=== PATIENT | male | born 1945 | race Caucasian/White ===

== ENCOUNTER 2018-01-01 17:46 | Emergency (ER) | payer MEDICARE, BC ==
[~2018-01-01] VITALS: Ht 177.8 cm; Wt 81.4 kg
[2018-01-01] MEDS ORDERED: normal saline 1000ML IV soln IV ONE (18:15)
[2018-01-01 18:46] LABS: BASOPHILS % (AUTO) 0.2 % (0-1); EOSINOPHILS % (AUTO) 0.1 % (0-6); HEMATOCRIT 43.3 % (42.0-52.0); HEMOGLOBIN 14.6 g/dl (14.0-17.9); LYMPHOCYTES % (AUTO) 4.5 % (21-51); MEAN CORPUSCULAR HEMOGLOBIN 28.6 PG (27.0-31.0); MEAN CORPUSCULAR HGB CONC 33.8 % (33.0-36.5); MEAN CORPUSCULAR VOLUME 84.6 FL (78-98); MEAN PLATELET VOLUME 7.8 FL (7.4-10.4); MONOCYTES % (AUTO) 4.5 % (2-12); NEUTROPHILS # (AUTO) 19.3 X10'3 (1.8-7.7); NEUTROPHILS % (AUTO) 90.7 % (42-75); PLATELET COUNT 253 X10'3 (140-440); RED BLOOD COUNT 5.12 X10'6 (4.70-6.10); RED CELL DISTRIBUTION WIDTH 13.4 % (11.5-14.5); WHITE BLOOD COUNT 21.3 X10'3 (4.5-11.0)
[2018-01-01 18:49] LABS: CLARITY,URINE SLIGHTLY CLOUDY (Clear); COLOR,URINE YELLOW (Yellow); GLUCOSE, URINE NEGATIVE (Neg); KETONES,URINE TRACE mg/dl (Neg); LEUKOCYTE ESTERASE ,URINE MODERATE (Neg); NITRITES, URINE POSITIVE (Neg); OCCULT BLOOD,URINE TRACE-INTACT (Neg); PROTEIN,URINE NEGATIVE (Neg); UROBILINOGEN,URINE 0.2 E.U/dL (0.2-1.0)
[2018-01-01 18:57] LABS: PARTIAL THROMBOPLASTIN TIME 26 SECONDS (22-32); PROTHROMBIN TIME 10.7 SECONDS (9.0-12.0)
[2018-01-01 19:02] LABS: ALANINE AMINOTRANSFERASE 25 U/L (12-78); ALBUMIN 3.2 G/DL (3.4-5.0); ALKALINE PHOSPHATASE 56 IU/L (46-116); ANION GAP 8 (8-16); ASPARTATE AMINO TRANSFERASE 17 U/L (10-37); BILIRUBIN,TOTAL 0.8 MG/DL (0.1-1.0); BLOOD UREA NITROGEN 16 MG/DL (7-18); BUN/CREATININE RATIO 13.6 (5.4-32.0); CALCIUM 8.8 MG/DL (8.5-10.1); CHLORIDE 101 MMOL/L (99-107); CREATININE 1.18 MG/DL (0.60-1.10); GLUCOSE 143 MG/DL (70-104); MAGNESIUM 1.9 MG/DL (1.5-2.4); SODIUM 135 MMOL/L (135-145); TOTAL CARBON DIOXIDE 26.2 MMOL/L (24-32); TOTAL PROTEIN 6.3 G/DL (6.4-8.2); eGFR 61 ML/MIN
[2018-01-01 19:07] LABS: UA COLLECTION TYPE CLN CATCH MIDSTREAM
[2018-01-01 19:09] LABS: BACTERIA,URINE 2+ /HPF (Neg); RBC,URINE 0-2 /HPF (0-2); SQUAMOUS EPITHELIAL CELL,UR FEW /LPF (FEW); WBC CLUMPS,URINE FEW /HPF (NEGATIVE); WBC,URINE 50-100 /HPF (0-4)
[2018-01-01] MEDS ORDERED: SULF1TAB49 PO (19:33)
[2018-01-01] MEDS ORDERED: sulfamethoxazole/trimethoprim DS (800/160mg) tablet PO ONE (19:40)
[2018-01-01 19:47] LABS: PLATELET ESTIMATE NORMAL; TOTAL CELLS COUNTED 100
[2018-01-01] MEDS ORDERED: acetaminophen 325mg tablet PO ONE (19:50)
[2018-01-01 19:52] VITALS: BP 137/60
[2018-01-02] MEDS ORDERED: MULT-38 PO (14:55)
[2018-01-02] MEDS ORDERED: TERA10CA4 PO (14:55)
[2018-01-02] MEDS ORDERED: GLUC-133 PO (14:55)
[2018-01-02] MEDS ORDERED: SIMV20TA PO (14:55)
[2018-01-06] MEDS ORDERED: TAMS0.4C32 PO (14:14)
[2018-01-06] MEDS ORDERED: CIPR-230 PO (14:14)
== END 2018-01-01 19:53 | disposition home or self-care (01) ==
LOC: ER 17:46
DX: N39.0 Urinary tract infection, site not specified (principal)
CPT/HCPCS: 36415; 71045; 80053; 81001; 83605; 83735; 84145; 85025; 85610; 85730; 87040; 87077; 87088; 87186; 93005; 99285; J7030

== ENCOUNTER 2018-01-02 05:57 | Emergency (ER) | payer MEDICARE, BC ==
[~2018-01-02] VITALS: Ht 177.8 cm; Wt 99.3 kg
[~2018-01-02 05:57] MED LIST: SULF1TAB49 PO
[2018-01-02 06:06] VITALS: BP 134/67
[2018-01-02] MEDS ORDERED: CefTRIAXone 1000mg IM Kit (w/lidocaine diluent) IM ONE (06:40)
[2018-01-02] MEDS ORDERED: TERA10CA4 PO (14:55)
[2018-01-02] MEDS ORDERED: SIMV20TA PO (14:55)
[2018-01-02] MEDS ORDERED: GLUC-133 PO (14:55)
[2018-01-02] MEDS ORDERED: MULT-38 PO (14:55)
[2018-01-06] MEDS ORDERED: TAMS0.4C32 PO (14:14)
[2018-01-06] MEDS ORDERED: CIPR-230 PO (14:14)
== END 2018-01-02 07:17 | disposition home or self-care (01) ==
LOC: ER 05:58
DX: N39.0 Urinary tract infection, site not specified (principal); D72.829 Elevated white blood cell count, unspecified; Z98.890 Other specified postprocedural states
CPT/HCPCS: 51702; 96372; 99284; A4315; J0696

== ENCOUNTER 2018-01-11 02:36 | Emergency (ER) | payer MEDICARE, BC ==
[~2018-01-11] VITALS: Ht 177.8 cm; Wt 80.9 kg
[~2018-01-11 02:36] MED LIST changes: +CIPR-230 PO; +GLUC-133 PO; +MULT-38 PO; +SIMV20TA PO; -SULF1TAB49 PO; +TAMS0.4C32 PO
[2018-01-11 02:45] VITALS: BP 152/83
== END 2018-01-11 04:09 | disposition home or self-care (01) ==
LOC: ER 02:37
DX: R33.9 Retention of urine, unspecified (principal); Z98.890 Other specified postprocedural states; Z79.899 Other long term (current) drug therapy
CPT/HCPCS: 51702; 99284; A4315

== ENCOUNTER 2022-03-04 22:59 | Emergency (ER) | payer MEDICARE, BC ==
[~2022-03-04] VITALS: Ht 177.8 cm; Wt 100.0 kg
[~2022-03-04 22:59] MED LIST changes: +AMOX-580 PO; -CIPR-230 PO; +ONDA4TAB12 PO; +TERA10CA4 PO
[2022-03-05 01:11] VITALS: BP 132/73
== END 2022-03-05 01:13 | disposition home or self-care (01) ==
LOC: ER 23:00
DX: R33.9 Retention of urine, unspecified (principal); E78.00 Pure hypercholesterolemia, unspecified; Z90.49 Acquired absence of other specified parts of digestive tract; Z98.890 Other specified postprocedural states; Z79.899 Other long term (current) drug therapy
CPT/HCPCS: 51702; 88304; 99284; A4314; A4358

== ENCOUNTER 2022-03-13 05:32 | Emergency (ER) | payer MEDICARE, BC ==
[~2022-03-13] VITALS: Ht 177.8 cm; Wt 97.7 kg
[2022-03-13 06:19] VITALS: BP 138/71
[2022-03-13] MEDS ORDERED: LIDOcaine 2% 10ml TOPICAL JELLY (Urojet) MM ONE (07:25)
== END 2022-03-13 08:59 | disposition home or self-care (01) ==
LOC: ER 05:33
DX: R33.9 Retention of urine, unspecified (principal); E78.00 Pure hypercholesterolemia, unspecified; Z79.899 Other long term (current) drug therapy
CPT/HCPCS: 51702; 99284; A4314; A4357